=== PATIENT | male | born 1950 | race Caucasian/White ===

== ENCOUNTER 2023-05-18 15:58 | Emergency (ER) | payer MEDICARE, MEDICAID, SELFPAY ==
[2023-05-18] VITALS (10 sets, daily range): BP systolic 144–192; BP diastolic 81–119; PULSE 88–108; RESP 16–20; O2SAT 90–99
--- NOTE | 2023-05-18 16:18 | XRR_ITS ---
PROCEDURE INFORMATION: Exam: XR Chest Exam date and time: 05/18/2023 4:23 PM Age: 73 years old Clinical indication: Screening exam; Other screening; Additional info: Psych TECHNIQUE: Imaging protocol: Radiologic exam of the chest. Views: 1 view. COMPARISON: No relevant prior studies available. FINDINGS: Lungs: No focal consolidation. Mid to lower lung hazy opacities on the left compatible with atelectasis or developing infection in the proper clinical setting. Pleural spaces: No evidence of pneumothorax. No evidence of pleural effusion. Heart/Mediastinum: Cardiomediastinal silhouette is within normal limits. Bones/joints: No evidence of acute osseous abnormality. XR/XR chest 1V portable [id number] IMPRESSION: 1. Mid to lower lung hazy opacities on the left compatible with atelectasis or developing infection in the proper clinical setting.
--- NOTE | 2023-05-18 16:23 | ED.C_ITS ---
HPI - Psych 2 General: Chief Complaint: Psychiatric Symptoms Stated Complaint: HTN Time Seen by Provider: 05/18/23 15:59 Source: patient and EMS Mode of arrival: EMS Limitations: no limitations History of Present Illness: 73-year-old male with history of intelle ctual disability he has a court appointed guardian long-term health. Patient per his guardian has been making suicidal statements for the last 3 to 4 days he states that he does not want to take his meds no longer and just wants to . He has no medical complaints at this time denies any worse improved factors he is hypertensive here he has not taken his blood pressure meds in days Associated symptoms: Reports depression and suicidal ideation Review of Systems 2 Const: Denies: fever(s), chills, body aches or change in appetite ENMT: Denies: throat pain or dental pain Card: Denies: chest pain Resp: Denies: dyspnea GI: Denies: abdominal pain, nausea, vomiting or diarrhea Musc: Denies: neck pain or back pain Skin/Breast: Denies: rash Neuro: Denies: headache(s) Psych: Reports: depression and suicidal ideation Physical Exam 2 Const: COMMON NORMALS: no acute distress, patient oriented x3 and healthy appearing HENMT: COMMON NORMALS: normocephalic and atraumatic HEAD & SCALP: n ormocephalic and atraumatic Eye: COMMON NORMALS: Equal, round and reactive pupils present and EOMs intact bilaterally PUPIL: Yes Equal, round and reactive pupils present Neck/C-Spine: COMMON NORMALS: full ROM and supple Chest: COMMONS NORMALS: normal inspection of the chest and normal palpation of entire chest wall Resp: COMMON NORMALS: normal respiratory effort, No retractions, No use of accessory muscles and clear to auscultation bilaterally AUSCULTATION: clear to auscultation bilaterally Cardio: COMMON NORMALS: regular rate, regular rhythm and No murmurs present (Cardio) RATE: regular rate RHYTHM: regular rhythm GI: COMMON NORMALS: Normal to inspection, nondistended, normoactive bowel sounds present, Soft to palpation, non-tender and no masses PALPATION: Yes Soft to palpation Extremity: COMMON NORMALS: normal to inspection and full ROM Neuro: COMMON NORMALS: patient oriented x3, moves all extremities and no focal motor deficits Psych: COMMON NORMALS: mental status grossly normal, Normal thought process present and cooperative THOUGHT PROCESS: Normal thought process present Skin: COMMON NORMALS: no rashes or lesions noted and no wounds GENERAL SKIN EXAM: no rashes or lesions noted Course 2 Vital Signs: Vital signs: Vital Signs Pulse Rate 88 05/18/23 20:30 Respiratory Rate 16 05/18/23 19:30 Blood Pressure 144/81 05/18/23 21:40 Pulse Oximetry 98 05/18/23 20:30 Oxygen Delivery Me thod Room Air 05/18/23 20:30 MDM - Psych Medical Decision Making Patient presents for suicidal ideations he is medically cleared patient is excepted to [facility] transfer there. Medical Records I reviewed the patient's medical records. Lab Data I reviewed the patient's lab results. 05/18/23 16:08 05/18/23 16:08 Radiology Impressions Chest X-Ray 05/18/23 16:18 IMPRESSION: 1. Mid to lower lung hazy opacities on the left compatible with atelectasis or developing infection in the proper clinical setting. Laboratory Results WBC 5.90 10^3/uL (3.29-11.43) 05/18/23 16:08 RBC 4.86 10^6/uL (3.85-5.65) 05/18/23 16:08 Hgb 13.90 g/dL (11.27-16.99) 05/18/23 16:08 Hct 39.2 % (37-53) 05/18/23 16:08 MCV 80.7 fl (82-101) L 05/18/23 16:08 MCH 28.6 pg (27-33) 05/18/23 16:08 MCHC 35.5 g/dL (30-55) 05/18/23 16:08 RDW 12.6 % (12.1-15.1) 05/18/23 16:08 Plt Count 179 10^3/cmm (157-399) 05/18/23 16:08 MPV 11.6 fL (7.4-10.4) H 05/18/23 16:08 Neut % (Auto) 68.4 % 05/18/23 16:08 Lymph % (Auto) 19.5 % 05/18/23 16:08 Braxton % (Auto) 9.7 % 05/18/23 16:08 Eos % (Auto) 1.7 % 05/18/23 16:08 Baso % (Auto) 0.5 % 05/18/23 16:08 Neut # (Auto) 4.04 10^3/uL (1.8-7.7) 05/18/23 16:08 Lymph # (Auto) 1.2 10^3/uL (0.8-4.8) 05/18/23 16:08 Braxton # (Auto) 0.6 10^3/uL (0.2-0.9) 05/18/23 16:08 Eos # (Auto) 0.1 10^3/uL (0.0-0.8) 05/18/23 16:08 Baso # (Auto) 0.0 10^3/uL (0.0-0.1) 05/18/23 16:08 Nucleated RBC % (auto) 0 % 05/18/23 16:08 Nucleated RBCs # 0.0 /100WBC 05/18/23 16:08 Sodium 135 mmol/L (136-145) L 05/18/23 16:08 Potassium 3.4 mmol/L (3.5-5.1) L 05/18/23 16:08 Chloride 93 mmol/L (98-107) L 05/18/23 16:08 Carbon Dioxide 29 mmol/L (22-29) 05/18/23 16:08 Anion Gap 16.4 (5-19) 05/18/23 16:08 BUN 10 mg/dL (8-23) 05/18/23 16:08 Creatinine 0.6 mg/dL (0.7-1.2) L 05/18/23 16:08 GFR Calculation Not Reportable 05/18/23 16:08 Glucose 371 mg/dL (65-115) H 05/18/23 16:08 POC Glucose 346 mg/dL (70-110) H 05/18/23 16:20 Calculated Osmolality 294 mOsm/kg (285-295) 05/18/23 16:08 Calcium 10.0 mg/dL (8.5-10.5) 05/18/23 16:08 Total Bilirubin 1.3 mg/dL (0.15-1.2) H 05/18/23 16:08 AST 11 U/L (0-40) 05/18/23 16:08 ALT 10 U/L (0-41) 05/18/23 16:08 Alkaline Phosphatase 69 U/L (40-130) 05/18/23 16:08 NT-Pro-B Natriuret Pep 132 pg/mL (0-125) H 05/18/23 16:08 Total Protein 7.6 g/dL (6.6-8.7) 05/18/23 16:08 Albumin 4.5 g/dL (3.5-5.2) 05/18/23 16:08 Globulin 3.1 g/dL (1.3-4.6) 05/18/23 16:08 TSH 2.37 uIU/mL (0.27-4.20) 05/18/23 16:08 Urine Color Yellow (Yellow) 05/18/23 19:48 Urine Appearance Clear (CLEAR) 05/18/23 19:48 Urine pH 6 (5-7) 05/18/23 19:48 Ur Specific [place] 1.010 (1.005-1.030) 05/18/23 19:48 Urine Protein 1+ (Negative) H 05/18/23 19:48 Urine Glucose (UA) 4+ (Normal) H 05/18/23 19:48 Urine Ketones 1+ (Negative) H 05/18/23 19:48 Urine Blood Neg (Negative) 05/18/23 19:48 Urine Nitrate Negative (Negative) 05/18/23 19:48 Urine Bilirubin Neg (Negative) 05/18/23 19:48 Urine Urobilinogen 1 mg/dL (Negative) H 05/18/23 19:48 Ur Leukocyte Esterase Negative (Negative) 05/18/23 19:48 Urine RBC None /hpf (0-2) 05/18/23 19:48 Urine WBC None /hpf (0-5) 05/18/23 19:48 Ur Squamous Epith Cells None /hpf (0-5) 05/18/23 19:48 Amorphous Sediment Not Reportable 05/18/23 19:48 Urine Bacteria None /hpf (NONE) 05/18/23 19:48 Salicylates < 0.3 mg/dL (3-10) L 05/18/23 16:08 Urine Opiates Screen Negative ng/mL (Negative) 05/18/23 19:40 Acetaminophen < 5.0 ug/mL (10-30) L 05/18/23 16:08 Ur Barbiturates Screen Negative ng/mL (Negative) 05/18/23 19:40 Ur Phencyclidine Scrn Negative ng/mL (Negative) 05/18/23 19:40 Ur Amphetamines Screen Negative ng/mL (Negative) 05/18/23 19:40 U Benzodiazepines Scrn Negative ng/mL (Negative) 05/18/23 19:40 Urine Cocaine Screen Negative ng/mL (Negative) 05/18/23 19:40 U Marijuana (THC) Screen Negative ng/mL (Negative) 05/18/23 19:40 Ethyl Alcohol < 10 mg/dL (0-10) 05/18/23 16:08 Influenza Type A Ag negative (Negative) 05/18/23 16:08 Influenza Type B Ag negative (Negative) 05/18/23 16:08 RSV Antigen Negative (Negative) 05/18/23 16:08 SARS-CoV-2 Ag (Rapid) negative (Negative) 05/18/23 16:08 All radiology interpretation(s) finalized by discharge EKG Data EKG 1: I personally reviewed and interpreted this EKG as follows: EKG interpretation date: 05/18/23 EKG interpretation time: 16:36 Interpretation: sinus tach hr [address] elevation qrs 103 qtc 398 Discharge Plan Discharge Patient Disposition: Xfer [facility] Clinical Impression: Suicidal ideation Condition: Stable Referrals: Doug Garg [Referring] - Coding Level of Care Code ED [facility] [employer] for Chg Micky
[2023-05-18 16:24] LABS: Glucose Point of Care 346 mg/dL (70-110)
[2023-05-18 16:25] LABS: Basophils % 0.5 %; Eosinophils # 0.1 10^3/uL (0.0-0.8); Eosinophils % 1.7 %; Hematocrit 39.2 % (37-53); Lymphocytes # 1.2 10^3/uL (0.8-4.8); Lymphocytes % 19.5 %; Mean Corpuscular HGB Conc 35.5 g/dL (30-55); Mean Corpuscular Hemoglobin 28.6 pg (27-33); Mean Corpuscular Volume 80.7 fl (82-101); Mean Platelet Volume 11.6 fL (7.4-10.4); Monocytes # 0.6 10^3/uL (0.2-0.9); Monocytes % 9.7 %; Neutrophils # 4.04 10^3/uL (1.8-7.7); Neutrophils % 68.4 %; Nucleated Red Blood Cells % 0 %; Platelet Count 179 10^3/cmm (157-399); Red Blood Count 4.86 10^6/uL (3.85-5.65); Red Cell Distribution Width 12.6 % (12.1-15.1)
--- NOTE | 2023-05-18 16:36 | ECG_ITS ---
[facility] Test Date: 2023-05-18 Pat Name: Maykel Tee Department: Room: Gender: Male [employer]: : 1950 Requested By: Sonu Crockett Order Number: [id number] Nasrin MD: Luis Angel Brar M.D. Measurements Intervals [place] Rate: 102 P: 35 [place]: 177 QRS: -26 QRSD: 103 T: -15 QT: 340 QTc: 443 Interpretive Statements SINUS TACHYCARDIA BORDERLINE LEFT AXIS DEVIATION [QRS AXIS < -20] MINIMAL VOLTAGE CRITERIA FOR LVH, CONSIDER NORMAL VARIANT [MEETS CRITERIA IN ONE OF: R(aVL), S(V1), R(V5), R(V5/V6)+S(V1)] ABNORMAL RHYTHM ECG Compared to ECG 12/16/2015 02:46:40 Left anterior fascicular block no longer present Myocardial infarct finding no longer present Electronically Signed On 05-19-2023 23:46:29 CDT by Luis Angel Brar M.D. [id number]
[2023-05-18 16:41] LABS: Influenza A by IFA negative (Negative); Influenza B by IFA negative (Negative)
[2023-05-18 16:43] LABS: SARS Covid-2 Antigen negative (Negative)
[2023-05-18 16:49] LABS: RSV Transfer Patient (ED) Negative (Negative)
[2023-05-18 17:00] LABS: Alanine Aminotransferase 10 U/L (0-41); Albumin Level 4.5 g/dL (3.5-5.2); Alkaline Phosphatase 69 U/L (40-130); Anion Gap 16.4 (5-19); Aspartate Amino Transferase 11 U/L (0-40); Blood Urea Nitrogen 10 mg/dL (8-23); Carbon Dioxide 29 mmol/L (22-29); Chloride 93 mmol/L (98-107); Globulin 3.1 g/dL (1.3-4.6); Glucose 371 mg/dL (65-115); Osmolality Calculated 294 mOsm/kg (285-295); Potassium 3.4 mmol/L (3.5-5.1); Sodium 135 mmol/L (136-145); Thyroid Stimulating Hormone 2.37 uIU/mL (0.27-4.20); Total Bilirubin 1.3 mg/dL (0.15-1.2); Total Protein 7.6 g/dL (6.6-8.7)
[2023-05-18 17:02] LABS: Acetaminophen < 5.0 ug/mL (10-30); Alcohol Level < 10 mg/dL (0-10); Salicylate < 0.3 mg/dL (3-10)
[2023-05-18] MEDS: metoprolol tartrate 50 mg Tablet PO (17:17)
[2023-05-18] MEDS: insulin nph human 100 units/1 mL 10 UNIT SUBCUT (17:17)
[2023-05-18 18:14] LABS: NT Pro B Type Natriuretic Pept 132 pg/mL (0-125)
[2023-05-18] MEDS: hyDRALAzine 20 mg/mL INJ 1 mL IM (19:02)
[2023-05-18 20:17] LABS: Amphetamines Screen Urine Negative (Negative); Barbiturates Screen Urine Negative (Negative); Benzodiazepines Screen Urine Negative (Negative); Cocaine Screen Urine Negative (Negative); Opiate Screen Urine Negative (Negative); PCP Screen Urine Negative (Negative); THC Screen Urine Negative (Negative)
[2023-05-18 21:33] LABS: Add Urine Culture? No; Add Urine Microscopic? YES; Bilirubin Urine Neg (Negative); Blood Urine Neg (Negative); Glucose Urine UA 4+ (Normal); Ketones Urine 1+ (Negative); Leukocyte Esterase Urine Negative (Negative); Nitrate Urine Negative (Negative); Protein Urine 1+ (Negative); Urine Appearance Clear (CLEAR); Urine Color Yellow (Yellow); Urobilinogen Urine 1 mg/dL (Negative); pH Urine 6 (5-7)
--- NOTE | 2023-05-18 21:58 | DCPLANNER ---
Contacted [facility] at 2028, spoke to Ggee. Paperwork faxed at 2031. Patient accepted by Paulina Sierra CNP at 2147.
[2023-05-18 22:21] LABS: Glucose Point of Care 338 mg/dL (70-110)
--- NOTE | 2023-05-18 23:07 | PC.NURSE ---
report to samantha pt report was called to samantha to gino edwards and gino had no further questions at this time. we let them know we would call when we had a eta on [facility]ca.
--- NOTE | 2023-05-18 23:25 | PC.NURSE ---
dr notified blood glucose was 338, dr stated to hold off on insulin and see if he trends down more.
[2023-05-19 00:31] VITALS: PULSE 88; O2SAT 93
[2023-05-19 03:24] VITALS: BP 155/80; PULSE 80; O2SAT 96
[2023-05-19 04:48] VITALS: BP 155/91; PULSE 93; O2SAT 95
[2023-05-19 06:46] VITALS: PULSE 98; O2SAT 95
--- NOTE | 2023-05-19 09:06 | PC.PHAR ---
pts brother luciana called and verified pts medications-states the pt takes no otc meds-states the pt hasnt taken glimepiride 4mg daily ext shows last filled 12/29/22 90d/s -metformin 500mg bid ext shows last filled 01/25/23 90d/s or januvia 100mg daily ext shows last filled 03/23/23 30d/s states not taken for 1 or 2 months-states only taking medications entered-states the pt uses lantus solostar 48 units daily ext shows last filled 42 units hs-notes are made in the pharmacy comments
== END 2023-05-19 09:20 ==
PROVIDERS: Emergency Provider Emergency Medicine
DX: R45.851 Suicidal ideations (principal); Z11.52 Encounter for screening for COVID-19
CPT/HCPCS: 36416; 71045; 80053; 80306; 80307; 81001; 82962; 83880; 84443; 85025; 87426; 87804; 87899; 93005; 96372; 99285; J0360; J1818